=== PATIENT | male | born 1990 | race Hispanic/Latino ===

== ENCOUNTER → 2019-11-11 | Outpatient (CLI) | payer MEDICAID ==
[2019-11-16 15:19] LABS: Hemoglobin 14.3 gm/dl (11.8-15.2); Red Blood Count 4.19 M/mm3 (3.65-5.03)
[2019-11-16 15:20] LABS: Basophils % (Auto) 0.3 % (0.0-1.8); Eosinophils # (Auto) 0.1 K/mm3 (0.0-0.4); Eosinophils % (Auto) 1.6 % (0.0-4.3); Hematocrit 42.6 % (35.5-45.6); Lymphocytes # (Auto) 3.2 K/mm3 (1.2-5.4); Lymphocytes % (Auto) 36.1 % (13.4-35.0); Mean Corpuscular HGB Conc 34 % (32-34); Mean Corpuscular Volume 102 fl (84-94); Monocytes # (Auto) 0.6 K/mm3 (0.0-0.8); Platelet Count 260 K/mm3 (140-440); Red Cell Distribution Width 12.2 % (13.2-15.2)
[2019-11-16 15:21] LABS: Alanine Aminotransferase 11 units/L (7-56); BUN/Creatinine Ratio 34; Blood Urea Nitrogen 24 mg/dL (9-20); Calcium 9.9 mg/dL (8.4-10.2)
[2019-11-16 15:22] LABS: Albumin 4.4 g/dL (3.9-5); Hemolysis Index 37
== END | disposition home or self-care (01) ==
LOC: LAB 15:40
PROVIDERS: ATTEND Internal Medicine
DX: T42.6X1A Poisoning by other antiepileptic and sedative-hypnotic drugs, accidental (unintentional), initial encounter (principal); R79.89 Other specified abnormal findings of blood chemistry; R68.89 Other general symptoms and signs
CPT/HCPCS: 36415; 80053; 80164; 85025